=== PATIENT | male | born 1955 | race Hispanic/Latino ===

== ENCOUNTER 2022-08-20 11:46 | Emergency (ER) | payer MEDICARE ==
[~2022-08-20] VITALS: Ht 167.6 cm; Wt 62.1 kg
[2022-08-20 11:50] VITALS: BP 140/79
[2022-08-20 12:08] LABS: APPEARANCE,URINE CLOUDY (CLEAR); BILIRUBIN,URINE SMALL mg/dL (NEGATIVE); COLOR,URINE RED (YELLOW); GLUCOSE, URINE (UA) 100 mg/dL (NEGATIVE); KETONES,URINE 15 mg/dL (NEGATIVE); LEUKOCYTE ESTERASE ,URINE SMALL Leu/uL (NEGATIVE); NITRATE,URINE POSITIVE (NEGATIVE); OCCULT BLOOD,URINE LARGE (NEGATIVE); PROTEIN,URINE >=300 mg/dL (NEGATIVE)
[2022-08-20 12:14] LABS: RBC,URINE TNTC /HPF (0-1)
[2022-08-20 12:15] LABS: BACTERIA,URINE Many /HPF (None Seen); SQUAMOUS EPITHELIAL CELL,UR Rare /HPF (0-2)
[2022-08-20] MEDS ORDERED: SULF1TAB42 PO (12:57)
[2022-08-20] MEDS ORDERED: PHEN-847 PO (12:57)
[2022-08-20 13:22] LABS: BASOPHILS % (AUTO) 0.7 % (0.0-5.0); EOSINOPHILS % (AUTO) 4.2 % (0.0-8.0); HEMATOCRIT 41.9 % (42-54); LYMPHOCYTES % (AUTO) 21.1 % (21.0-51.0); MEAN CORPUSCULAR HEMOGLOBIN 29.3 pg (27.0-33.0); MEAN CORPUSCULAR HGB CONC 34.1 g/dL (32.0-36.0); MEAN CORPUSCULAR VOLUME 85.9 fL (79-99); MONOCYTES % (AUTO) 6.6 % (3.0-13.0); NEUTROPHILS % (AUTO) 67.2 % (40.0-77.0); PLATELET COUNT (AUTO) 291 K/uL (130-400); RED BLOOD CELL COUNT(AUTO) 4.88 MIL/uL (4.50-6.20); RED CELL DISTRIBUTION WIDTH 11.9 % (11.0-15.5); WHITE BLOOD COUNT (AUTO) 8.2 K/uL (4.8-10.8)
[2022-08-20 13:42] LABS: CREATININE 1.1 mg/dL (0.5-1.5); POTASSIUM 4.1 mmol/L (3.5-5.1)
[2022-08-20 13:46] LABS: ALBUMIN 3.8 g/dL (3.5-5.0); TOTAL PROTEIN, SERUM 7.7 g/dL (6.0-8.3)
== END 2022-08-20 13:57 | disposition home or self-care (01) ==
LOC: EDH 11:46
DX: N39.0 Urinary tract infection, site not specified (principal); R31.9 Hematuria, unspecified; E11.9 Type 2 diabetes mellitus without complications; E78.00 Pure hypercholesterolemia, unspecified; I10 Essential (primary) hypertension; Z79.899 Other long term (current) drug therapy
CPT/HCPCS: 36415; 80053; 81001; 85025; 87088

== ENCOUNTER 2023-01-23 17:25 | Emergency (ER) | payer MEDICARE ==
[~2023-01-23] VITALS: Ht 170.2 cm; Wt 59.0 kg
[~2023-01-23 17:25] MED LIST: PHEN-847 PO; SULF1TAB42 PO
[2023-01-23 17:34] VITALS: BP 153/87
[2023-01-23] MEDS ORDERED: CEFAZOLIN SODIUM 1 GM VIAL IM STA (19:54)
[2023-01-23] MEDS ORDERED: IBUPROFEN 800 MG TAB PO ONE (20:00)
[2023-01-23] MEDS ORDERED: ACETAMINOPHEN WITH CODEINE 1 TAB TAB PO ONE (20:00)
[2023-01-23] MEDS ORDERED: DIPH,PERTUSS(ACELL),TET VAC/PF 0.5 ML VIAL IM ONE (20:00)
[2023-01-23] MEDS ORDERED: TETANUS/DIPHTHERIA TOXOID [ADULT] 0.5 ML VIAL IM ONE (20:30)
[2023-01-23] MEDS ORDERED: AMOX-426 PO (23:22)
[2023-01-23] MEDS ORDERED: NAPR-1180 PO (23:22)
[2023-01-23] MEDS ORDERED: BACITRACIN 1 EACH PACKET TP ONE (23:30)
== END 2023-01-23 23:34 | disposition home or self-care (01) ==
LOC: EDH 17:25
DX: S01.411A Laceration without foreign body of right cheek and temporomandibular area, initial encounter (principal); S05.31XA Ocular laceration without prolapse or loss of intraocular tissue, right eye, initial encounter; I10 Essential (primary) hypertension; E78.00 Pure hypercholesterolemia, unspecified; E11.9 Type 2 diabetes mellitus without complications; Z79.899 Other long term (current) drug therapy; Z98.890 Other specified postprocedural states; Z90.79 Acquired absence of other genital organ(s); W54.0XXA Bitten by dog, initial encounter; Y93.89 Activity, other specified; Y92.89 Other specified places as the place of occurrence of the external cause; Y99.8 Other external cause status
CPT/HCPCS: 99284; 70140; 90471; 12015; 96372; J0690